=== PATIENT | male | born 1965 | race Caucasian/White ===

== ENCOUNTER 2017-10-22 17:51 | Emergency (ER) | payer MEDICAID ==
[~2017-10-22] VITALS: Ht 177.8 cm; Wt 80.9 kg
[2017-10-22] MEDS ORDERED: CLAR500T98 PO (17:58)
[2017-10-22] MEDS ORDERED: CLAR250T PO (18:05)
[2017-10-22 20:21] VITALS: BP 118/72
== END 2017-10-22 20:24 | disposition home or self-care (01) ==
LOC: EMS 17:55
DX: R51 Headache (principal); F10.129 Alcohol abuse with intoxication, unspecified; Z79.899 Other long term (current) drug therapy
CPT/HCPCS: 70450; 99285

== ENCOUNTER 2018-03-23 22:00 | Emergency (ER) | payer MEDICAID ==
[~2018-03-23] VITALS: Ht 177.8 cm; Wt 79.5 kg
[~2018-03-23 22:00] MED LIST: CLAR250T PO
[2018-03-23] MEDS ORDERED: PERTUSS(ACELL),DIPH,TET VAC/PF 0.5 ML VIAL IM ONE (23:45)
[2018-03-23] MEDS ORDERED: BUPIVACAINE HCL/PF 0.25% 10 ML VIAL INJ ONE (23:45)
[2018-03-23] MEDS ORDERED: BACITRACIN 0.9 GM PACKET OINTMENT TP ONE (23:45)
[2018-03-24 01:35] VITALS: BP 128/78
== END 2018-03-24 02:06 | disposition home or self-care (01) ==
LOC: EMS 22:00
DX: S62.111A Displaced fracture of triquetrum [cuneiform] bone, right wrist, initial encounter for closed fracture (principal); S01.511A Laceration without foreign body of lip, initial encounter; S00.03XA Contusion of scalp, initial encounter; S80.01XA Contusion of right knee, initial encounter; S50.01XA Contusion of right elbow, initial encounter; F17.210 Nicotine dependence, cigarettes, uncomplicated; Y04.2XXA Assault by strike against or bumped into by another person, initial encounter; Y93.89 Activity, other specified; Y92.89 Other specified places as the place of occurrence of the external cause; Y99.8 Other external cause status
CPT/HCPCS: 29125; 40650; 70450; 73080; 73110; 73562; 90471; 90715; 99284; 99406; J3490